=== PATIENT | female | born 1980 | race Caucasian/White ===

== ENCOUNTER 2016-08-29 20:26 | Emergency (ER) | payer MEDICAID ==
[~2016-08-29] VITALS: Ht 157.5 cm; Wt 86.2 kg
--- NOTE | 2016-08-29 20:26 | NUR ---
Patient to ER bed 5 to gown for evaluation. Side rails up. Report given to SANTANA LOPEZ.
--- NOTE | 2016-08-29 20:27 | NUR ---
Pt AOx4, arrived to ER via BLS with complaint of left hip/leg pain. Patient states that pain 10/10 is present during menstrual time. Pt is able to ambulate but is painful. Pt in no acute distress. Will continue to monitor.
--- NOTE | 2016-08-29 20:28 | NUR ---
MD at bedside examining patient
[2016-08-29] MEDS ORDERED: NACL 0.9% 1,000 ML IV ONE (20:29)
[2016-08-29 20:30] VITALS: BP 129/84; PULSE 73; RESP 18; TEMP 98.1; O2SAT 98
[2016-08-29] MEDS ORDERED: KETOROLAC TROMETHAMINE 30 MG VIAL IVP ONE (20:30)
--- NOTE | 2016-08-29 20:30 | NUR ---
Note undone in EDM - 08/30/16 at 0232 by [email or web address] Patient given written and verbal discharge instructions and verbalizes understanding. ER discussed with patient the results and treatment provided. Patient in stable condition. ID arm band removed. IV catheter removed intact and dressing applied, no active bleeding.Rx of Naprosyn given. Patient educated on pain management and to follow up with PMD.Pain Scale 2/10 tolerable to patient.Opportunity for questions provided and answered.
[2016-08-29 20:58] LABS: BASOPHILS # (AUTO) 0.1 K/uL (0.0-0.2); BASOPHILS % (AUTO) 0.6 % (0.0-2.0); EOSINOPHILS # (AUTO) 0.1 K/uL (0.0-0.4); EOSINOPHILS % (AUTO) 0.7 % (0.0-4.0); HEMATOCRIT 39.5 % (36-48); HEMOGLOBIN 13.2 g/dL (12.0-16.0); LYMPHOCYTES # (AUTO) 2.2 K/uL (1.0-5.5); LYMPHOCYTES % (AUTO) 25.8 % (20.5-51.5); MEAN CORPUSCULAR HEMOGLOBIN 31 pg (27-31); MEAN CORPUSCULAR HGB CONC 34 % (32-36); MEAN CORPUSCULAR VOLUME 92 fL (79.0-98.0); MONOCYTES # (AUTO) 0.5 K/uL (0.0-1.0); MONOCYTES % (AUTO) 5.7 % (1.7-9.3); NEUTROPHILS # (AUTO) 5.7 K/uL (1.8-7.7); NEUTROPHILS % (AUTO) 67.2 % (40.0-70.0); PLATELET COUNT (AUTO) 301 K/uL (130-430); RED BLOOD CELL COUNT(AUTO) 4.27 MIL/uL (4.2-6.2); RED CELL DISTRIBUTION WIDTH 11.7 % (9.0-15.0); WHITE BLOOD COUNT (AUTO) 8.6 K/uL (4.8-10.8)
[2016-08-29 21:07] LABS: BILIRUBIN,URINE NEGATIVE (NEGATIVE); BLOOD, URINE 3+ (NEGATIVE); CLARITY/URINE CLEAR (CLEAR); COLOR,URINE YELLOW (YELLOW); GLUCOSE,URINE NEGATIVE (NEGATIVE); KETONES,URINE NEGATIVE (NEGATIVE); LEUKOCYTE ESTERASE ,URINE NEGATIVE (NEGATIVE); NITRITE, URINE NEGATIVE (NEGATIVE); PH,URINE 5.5 (5.0-8.0); PROTEIN URINE NEGATIVE (NEGATIVE); UROBILINOGEN,URINE 0.2 (0.2-1.0)
[2016-08-29 21:14] LABS: ALBUMIN 3.8 g/dL (3.4-4.8); CALCIUM 9.1 mg/dL (8.4-11.0); CREATININE 0.78 mg/dL (0.55-1.30); POTASSIUM 3.5 mmol/L (3.5-5.1); TOTAL BILIRUBIN 0.3 mg/dL (0.0-1.0); TOTAL PROTEIN, SERUM 8.1 g/dL (6.4-8.3)
[2016-08-29 21:35] LABS: BACTERIA,URINE MODERATE /HPF (None Seen); MUCUS,URINE None Seen /LPF (None Seen)
[2016-08-29 22:34] VITALS: BP 128/69; PULSE 84; RESP 18; TEMP 97.8; O2SAT 98
--- NOTE | 2016-08-29 22:34 | NUR ---
Patient given written and verbal discharge instructions and verbalizes understanding. ER MD discussed with patient the results and treatment provided. Patient in stable condition. ID arm band removed. IV catheter removed intact and dressing applied, no active bleeding. Rx of Naprosyn given. Patient educated on pain management and to follow up with PMD. Pain Scale 2/10 tolerable to patient. Opportunity for questions provided and answered.
== END 2016-08-29 22:34 | disposition home or self-care (01) ==
LOC: SED 20:26
DX: R10.2 Pelvic and perineal pain (principal); M19.90 Unspecified osteoarthritis, unspecified site
CPT/HCPCS: 36415; 72170; 80053; 81000; 82150; 83690; 85025; 87086; 96361; 96374; 99285; J1885; J7030

== ENCOUNTER 2018-04-10 20:22 | Emergency (ER) | payer MEDICAID ==
[~2018-04-10] VITALS: Ht 162.6 cm; Wt 83.9 kg
[2018-04-10 20:25] VITALS: BP_SYST 138
[2018-04-10 22:56] VITALS: BP_SYST 135
== END 2018-04-10 22:56 | disposition home or self-care (01) ==
LOC: SED 20:22
DX: R11.10 Vomiting, unspecified (principal); R19.7 Diarrhea, unspecified; J45.909 Unspecified asthma, uncomplicated
CPT/HCPCS: 99283

== ENCOUNTER 2018-12-04 17:54 | Emergency (ER) | payer MEDICAID ==
[~2018-12-04] VITALS: Ht 160 cm; Wt 86.2 kg
[2018-12-04 17:55] VITALS: BP_SYST 126
[2018-12-04] MEDS ORDERED: TRIAMCINOLONE ACETONIDE 40 MG/ML IM ONE (18:15)
[2018-12-04 18:35] VITALS: BP_SYST 126
== END 2018-12-04 18:34 | disposition home or self-care (01) ==
LOC: SED 17:54
DX: J45.909 Unspecified asthma, uncomplicated (principal); R03.0 Elevated blood-pressure reading, without diagnosis of hypertension
CPT/HCPCS: 81025; 96372; 99283; J3301

== ENCOUNTER 2018-12-15 16:23 | Emergency (ER) | payer MEDICAID ==
[~2018-12-15] VITALS: Ht 160 cm; Wt 84.4 kg
[2018-12-15 16:29] VITALS: BP_SYST 137
[2018-12-15] MEDS ORDERED: KETOROLAC TROMETHAMINE 60 MG/2 ML VIAL IM ONE (17:00)
[2018-12-15 17:42] VITALS: BP_SYST 132
== END 2018-12-15 17:42 | disposition home or self-care (01) ==
LOC: SED 16:23
DX: J06.9 Acute upper respiratory infection, unspecified (principal); R03.0 Elevated blood-pressure reading, without diagnosis of hypertension
CPT/HCPCS: 96372; 99283; J1885

== ENCOUNTER 2019-03-12 16:58 | Emergency (ER) | payer MEDICAID ==
[~2019-03-12] VITALS: Ht 160 cm; Wt 86.6 kg
[2019-03-12 17:14] VITALS: BP_SYST 112
--- NOTE | 2019-03-12 17:19 | NUR ---
Patient triaged and placed in waiting room. VSS and patient appears in no acute distress at this time. Accompanied by SELF, awaiting available bed, and MD notified of need for MSE.
--- NOTE | 2019-03-12 17:22 | NUR ---
Pt ambulated into ED c/o 09/25 sore throat, uncontrollable cough, congestion x 2 weeks. Skin pink dry and warm, cough present. No other injuries/complaints per pt/noted. Will continue to monitor.
--- NOTE | 2019-03-12 17:40 | NUR ---
Patient to ER bed 05 for evaluation. Side rails up.
[2019-03-12 17:51] LABS: STREPTOCOCCUS A SCREEN (RAPID) NEGATIVE (NEGATIVE)
--- NOTE | 2019-03-12 18:15 | NUR ---
ER at bedside examining patient.
[2019-03-12 18:25] LABS: BASOPHILS % (AUTO) 0.5 % (0.0-2.0); EOSINOPHILS # (AUTO) 0.1 K/uL (0.0-0.4); EOSINOPHILS % (AUTO) 1.3 % (0.0-4.0); HEMATOCRIT 38.4 % (36-48); HEMOGLOBIN 13.1 g/dL (12.0-16.0); LYMPHOCYTES % (AUTO) 21.8 % (20.5-51.5); MEAN CORPUSCULAR HEMOGLOBIN 33 pg (27-31); MEAN CORPUSCULAR HGB CONC 34 % (32-36); MEAN CORPUSCULAR VOLUME 95 fL (79.0-98.0); MONOCYTES # (AUTO) 0.5 K/uL (0.0-1.0); MONOCYTES % (AUTO) 5.4 % (1.7-9.3); NEUTROPHILS # (AUTO) 6.6 K/uL (1.8-7.7); PLATELET COUNT (AUTO) 301 K/uL (130-430); RED BLOOD CELL COUNT(AUTO) 4.03 MIL/uL (4.2-6.2); RED CELL DISTRIBUTION WIDTH 12.6 % (9.0-15.0); WHITE BLOOD COUNT (AUTO) 9.3 K/uL (4.8-10.8)
[2019-03-12 18:30] LABS: INFLUENZA A&B ANTIGEN SCREEN NEGATIVE FOR A & B (NEGATIVE)
[2019-03-12 18:35] LABS: CALCIUM 8.3 mg/dL (8.4-11.0); CREATININE 0.73 mg/dL (0.55-1.30); POTASSIUM 3.6 mmol/L (3.5-5.1)
[2019-03-12 18:50] LABS: ALBUMIN 3.3 g/dL (3.4-4.8); THYROID STIMULATING HORMONE 2.78 uIu/mL (0.36-3.74); TOTAL BILIRUBIN 0.3 mg/dL (0.0-1.0)
--- NOTE | 2019-03-12 19:12 | NUR ---
Report given to Uzair
--- NOTE | 2019-03-12 20:48 | NUR ---
started 20 G IV on R AC, CT with contrast consent signed and Radiology notified
--- NOTE | 2019-03-12 21:45 | NUR ---
VSS no s/s of acute distress Resting on gurney rails up
[2019-03-12 23:00] VITALS: BP_SYST 112
--- NOTE | 2019-03-12 23:00 | NUR ---
Patient given written and verbal discharge instructions and verbalizes understanding. ER MD discussed with patient the results and treatment provided. Patient in stable condition. ID arm band removed. IV catheter removed intact and dressing applied, no active bleeding. Patient educated on pain management and to follow up with PMD. Pain Scale 0/10 Opportunity for questions provided and answered.
== END 2019-03-12 23:00 | disposition home or self-care (01) ==
LOC: SED 16:58
DX: E04.1 Nontoxic single thyroid nodule (principal)
CPT/HCPCS: 36415; 76536-TC; 80053; 81025; 84439; 84443-TC; 84703; 85025; 86403; 86710; 87081; 99284

== ENCOUNTER 2019-07-10 16:41 | Emergency (ER) | payer MEDICAID ==
[~2019-07-10] VITALS: Ht 160 cm; Wt 88.0 kg
[2019-07-10 16:50] VITALS: BP_SYST 126
[2019-07-10 17:26] LABS: BASOPHILS # (AUTO) 0.1 K/uL (0.0-0.2); BASOPHILS % (AUTO) 0.7 % (0.0-2.0); EOSINOPHILS # (AUTO) 0.1 K/uL (0.0-0.4); EOSINOPHILS % (AUTO) 1.5 % (0.0-4.0); HEMATOCRIT 37.9 % (36-48); LYMPHOCYTES # (AUTO) 2.6 K/uL (1.0-5.5); LYMPHOCYTES % (AUTO) 29.9 % (20.5-51.5); MEAN CORPUSCULAR HEMOGLOBIN 33 pg (27-31); MEAN CORPUSCULAR HGB CONC 34 % (32-36); MEAN CORPUSCULAR VOLUME 95 fL (79.0-98.0); MONOCYTES # (AUTO) 0.5 K/uL (0.0-1.0); NEUTROPHILS # (AUTO) 5.5 K/uL (1.8-7.7); NEUTROPHILS % (AUTO) 61.9 % (40.0-70.0); PLATELET COUNT (AUTO) 309 K/uL (130-430); RED BLOOD CELL COUNT(AUTO) 4.02 MIL/uL (4.2-6.2); RED CELL DISTRIBUTION WIDTH 12.8 % (9.0-15.0); WHITE BLOOD COUNT (AUTO) 8.8 K/uL (4.8-10.8)
[2019-07-10 17:41] LABS: CALCIUM 8.2 mg/dL (8.4-11.0); CREATININE 0.74 mg/dL (0.55-1.30); POTASSIUM 3.4 mmol/L (3.5-5.1)
[2019-07-10 17:44] LABS: PROTHROMBIN TIME 10.2 SECS (9.5-12.5)
[2019-07-10 17:46] LABS: ALBUMIN 3.2 g/dL (3.4-4.8); C-REACTIVE PROTEIN QUANT 0.6 mg/dL (0-0.5); TOTAL BILIRUBIN 0.3 mg/dL (0.0-1.0)
[2019-07-10 18:35] VITALS: BP_SYST 126
== END 2019-07-10 18:32 | disposition home or self-care (01) ==
LOC: SED 16:41
DX: I77.6 Arteritis, unspecified (principal); J45.909 Unspecified asthma, uncomplicated
CPT/HCPCS: 36415; 80053; 85025; 85610-TC; 85730-TC; 86140; 99283

== ENCOUNTER 2021-11-04 09:03 | Inpatient (IN) | payer MEDICAID ==
[~2021-11-04] VITALS: Ht 160 cm; Wt 90.3 kg
[2021-11-04 09:14] VITALS: BP_SYST 122
--- NOTE | 2021-11-04 09:23 | NUR ---
Dr. Hoffman at bedside.
--- NOTE | 2021-11-04 09:25 | NUR ---
PT TRIAGED AND TAKEN TO ROOM 8. ENDORSED TO JOHN VELEZ. PT HAS C/O DIZZINESS X ONE WEEK WITH DIZZINESS, CHEST PRESSURE, ANXIETY, BACK PAIN. DENIES N/V/D/C. ON R/A. VSS. PT PLACED ON ON MONITOR. SIDERAILS UP X2.
--- NOTE | 2021-11-04 09:27 | NUR ---
DR NIEVES AT BEDSIDE ASSESING PT
--- NOTE | 2021-11-04 09:33 | NUR ---
PT DROVE TO ER/PRESENTED WITH COMPLAINT OF CHEST PRESSURE RADIATING TO BACK AND LEFT EAR PAIN 09/25.PT HAS HX OF VERTIGO AND IS ALLERGIC TO MEDICATION SHE WAS GIVEN 2 YR AGO TO TREAT VERTIGO. PT ALSO HAS COMPLAINT OF DIZZYNESS. VS ARE WITHIN NORMAL LIMITS WITH O2 SAT AT 98%. PT IN BED WITH BED LOWERED LOCKED AND LOWERED RAILS UP. WILL CONTINUE TO ASSESS
[2021-11-04 10:11] LABS: BASOPHILS # (AUTO) 0.1 K/uL (0.0-0.2); BASOPHILS % (AUTO) 1.4 % (0.0-2.0); EOSINOPHILS # (AUTO) 0.3 K/uL (0.0-0.4); EOSINOPHILS % (AUTO) 5.8 % (0.0-4.0); HEMATOCRIT 37.1 % (36-48); HEMOGLOBIN 13.3 g/dL (12.0-16.0); LYMPHOCYTES % (AUTO) 19.2 % (20.5-51.5); MEAN CORPUSCULAR HEMOGLOBIN 32 pg (27-31); MEAN CORPUSCULAR HGB CONC 36 % (32-36); MEAN CORPUSCULAR VOLUME 90 fL (79.0-98.0); MONOCYTES # (AUTO) 0.2 K/uL (0.0-1.0); MONOCYTES % (AUTO) 4.2 % (1.7-9.3); NEUTROPHILS # (AUTO) 3.5 K/uL (1.8-7.7); NEUTROPHILS % (AUTO) 69.4 % (40.0-70.0); PLATELET COUNT (AUTO) 275 K/uL (130-430); WHITE BLOOD COUNT (AUTO) 5.1 K/uL (4.8-10.8)
[2021-11-04] MEDS ORDERED: ASPIRIN 325 MG TABLET PO ONE (10:15)
--- NOTE | 2021-11-04 10:19 | NUR ---
ADM ASPIRIN FOR PAIN 09/25
[2021-11-04 10:21] LABS: ANION GAP 6 (5-15); CALCIUM 8.2 mg/dL (8.4-11.0); CHLORIDE 105 mmol/L (98-107); CREATININE 0.74 mg/dL (0.55-1.30); GLUCOSE 96 mg/dL (70-99); UREA NITROGEN, BLOOD 13 mg/dL (8-21)
[2021-11-04 10:31] LABS: GFR AFRICAN AMERICAN 112 mL/min (>90)
[2021-11-04 10:33] LABS: ALANINE AMINOTRANSFERASE 36 U/L (12-78); ALBUMIN 3.3 g/dL (3.4-4.8); ASPARTATE AMINOTRANSFERASE 30 U/L (10-37); TOTAL BILIRUBIN 0.5 mg/dL (0.0-1.0)
[2021-11-04 11:22] LABS: BILIRUBIN,URINE NEGATIVE (NEGATIVE); CLARITY/URINE CLEAR (CLEAR); COLOR,URINE YELLOW (YELLOW); GLUCOSE,URINE NEGATIVE (NEGATIVE); KETONES,URINE NEGATIVE (NEGATIVE); LEUKOCYTE ESTERASE ,URINE NEGATIVE (NEGATIVE); NITRITE, URINE NEGATIVE (NEGATIVE); PH,URINE 6.5 (5.0-8.0); PROTEIN URINE NEGATIVE (NEGATIVE); UROBILINOGEN,URINE 0.2 (0.2-1.0)
[2021-11-04 11:34] LABS: BLOOD, URINE TRACE (NEGATIVE)
[2021-11-04 11:36] LABS: RBC,URINE 0-3 /HPF (0-3); WBC,URINE 0-3 /HPF (0-3)
[2021-11-04 11:37] LABS: BACTERIA,URINE RARE /HPF (None Seen); MUCUS,URINE 1+ /LPF (None Seen)
--- NOTE | 2021-11-04 14:14 | NUR ---
JOSSYID Swabbed, sent to lab.
--- NOTE | 2021-11-04 14:19 | NUR ---
Admit bed requested Patient will be admitted to care of . Admitted to unit. Diagnosis Inpatient (Yes or No) Observation (Yes or No) Orientation concerns or request close to nursing station (Yes or No) Covid Status On vent or bipap Isolation requirements Needs a sitter From Home (Yes or if No enter name of facility) Requires Dialysis (Yes or No) Med Rec Completed (Yes of No)
[2021-11-04] MEDS ORDERED: LEVO75TA7 PO (16:48)
--- NOTE | 2021-11-04 17:15 | NUR ---
ASSUMED CARE OF PT.
--- NOTE | 2021-11-04 19:27 | NUR ---
ENDORSED PT TO [facility] EAST[facility]. ALL QUESTIONS AND CONCERNS ADDRESSED.
[2021-11-04 20:00] VITALS: BP_SYST 109
[2021-11-04 20:05] VITALS: BP_SYST 109
--- NOTE | 2021-11-04 20:15 | NUR ---
ADMIT NOTE Received pt from ER to [facility] unit, bed 109A-Tele with a diagnosis of CHEST PAIN at 2015. Pt received and report given to JOHN Salazar. Admission process initiated. Patient oriented to pain management, safety and call light-teach back done.
--- NOTE | 2021-11-04 20:38 | NUR ---
RECEIVED PT REPORT FROM PRIMARY RN. ALL QUESTIONS ANSWERED. PT WAS PENDING BED AT TIME OF REPORT. PT TAKEN TO TELE BED 109A. ON MONITOR. VSS. PT IN STABLE CONDITION.
[2021-11-05 07:00] VITALS: BP_SYST 98
[2021-11-05 09:06] LABS: THYROID STIMULATING HORMONE 3.71 uIu/mL (0.36-3.74)
[2021-11-05 13:11] VITALS: BP_SYST 98
--- NOTE | 2021-11-05 13:46 | NUR ---
DC PAPER EXPLAINED AND SIGNED BY THE PATIENT. MEDICATION PERSCRIPTION AND DC PAPER GIVEN TO THE PATIENT. ALL BELONGINGS TAKEN BY THE PATIENT.
[2021-11-05] MEDS ORDERED: busPIRone HCL 5 MG TABLET PO SCH (21:00)
== END 2021-11-05 13:50 | disposition home or self-care (01) | DRG 203 ==
LOC: SED 09:03 → STU 14:26
PROVIDERS: ADMIT Internal Medicine; ATTEND Internal Medicine
DX: R07.89 Other chest pain (principal); E44.1 Mild protein-calorie malnutrition; E66.9 Obesity, unspecified; E89.0 Postprocedural hypothyroidism; F41.9 Anxiety disorder, unspecified; J45.909 Unspecified asthma, uncomplicated; Z20.822 Contact with and (suspected) exposure to COVID-19; Z79.899 Other long term (current) drug therapy; Z68.35 Body mass index [BMI] 35.0-35.9, adult; Z88.8 Allergy status to other drugs, medicaments and biological substances
CPT/HCPCS: 36415; 71045; 80053; 81000; 82550; 83880; 84443; 84484; 84703; 85025; 93005; 99285; G0378

== ENCOUNTER 2022-06-17 17:59 | Emergency (ER) | payer MEDICAID ==
[~2022-06-17] VITALS: Ht 160 cm; Wt 89.8 kg
[~2022-06-17 17:59] MED LIST: LEVO75TA7 PO
[2022-06-17 19:00] VITALS: BP_SYST 132
[2022-06-17] MEDS ORDERED: MAG HYDROX/AL HYDROX/SIMETH 30 ML, DICYCLOMINE HCL 20 MG, LIDOCAINE VISCOUS 2% 15ML (PO... PO ONE ×3 (20:00)
[2022-06-17] MEDS ORDERED: KETOROLAC TROMETHAMINE 30 MG VIAL IM ONE (20:00)
[2022-06-17 20:32] LABS: BASOPHILS # (AUTO) 0.1 K/uL (0.0-0.2); BASOPHILS % (AUTO) 0.8 % (0.0-2.0); EOSINOPHILS # (AUTO) 0.2 K/uL (0.0-0.4); HEMATOCRIT 37.6 % (36-48); HEMOGLOBIN 13.1 g/dL (12.0-16.0); LYMPHOCYTES # (AUTO) 2.4 K/uL (1.0-5.5); LYMPHOCYTES % (AUTO) 30.5 % (20.5-51.5); MEAN CORPUSCULAR HEMOGLOBIN 33 pg (27-31); MEAN CORPUSCULAR HGB CONC 35 % (32-36); MEAN CORPUSCULAR VOLUME 93 fL (79.0-98.0); MONOCYTES # (AUTO) 0.6 K/uL (0.0-1.0); MONOCYTES % (AUTO) 7.4 % (1.7-9.3); NEUTROPHILS # (AUTO) 4.5 K/uL (1.8-7.7); NEUTROPHILS % (AUTO) 58.3 % (40.0-70.0); PLATELET COUNT (AUTO) 291 K/uL (130-430); RED BLOOD CELL COUNT(AUTO) 4.03 MIL/uL (4.2-6.2); RED CELL DISTRIBUTION WIDTH 12.7 % (9.0-15.0); WHITE BLOOD COUNT (AUTO) 7.7 K/uL (4.8-10.8)
[2022-06-17 20:49] LABS: ALANINE AMINOTRANSFERASE 32 U/L (12-78); ALBUMIN 3.2 g/dL (3.4-4.8); ANION GAP 5 (5-15); ASPARTATE AMINOTRANSFERASE 20 U/L (10-37); CALCIUM 8.1 mg/dL (8.4-11.0); CHLORIDE 103 mmol/L (98-107); CREATININE 0.84 mg/dL (0.55-1.30); GFR AFRICAN AMERICAN 96 mL/min (>90); GLUCOSE 82 mg/dL (70-99); TOTAL BILIRUBIN 0.2 mg/dL (0.0-1.0); UREA NITROGEN, BLOOD 19 mg/dL (8-21)
[2022-06-17 20:52] LABS: LIPASE 76 U/L (73-393)
[2022-06-17 20:58] LABS: BILIRUBIN,URINE NEGATIVE (NEGATIVE); BLOOD, URINE NEGATIVE (NEGATIVE); CLARITY/URINE CLOUDY (CLEAR); COLOR,URINE YELLOW (YELLOW); GLUCOSE,URINE NEGATIVE (NEGATIVE); KETONES,URINE NEGATIVE (NEGATIVE); LEUKOCYTE ESTERASE ,URINE NEGATIVE (NEGATIVE); NITRITE, URINE NEGATIVE (NEGATIVE); PH,URINE 5.5 (5.0-8.0); PROTEIN URINE NEGATIVE (NEGATIVE); UROBILINOGEN,URINE 0.2 (0.2-1.0)
[2022-06-17 21:06] LABS: BACTERIA,URINE FEW /HPF (None Seen); RBC,URINE NONE SEEN /HPF (0-3); WBC,URINE NONE SEEN /HPF (0-3)
[2022-06-17 21:07] LABS: MUCUS,URINE None Seen /LPF (None Seen); URINE AMORPHOUS URATE 3+ /HPF (None Seen)
--- NOTE | 2022-06-17 22:05 | NUR ---
Patient placed in ER bed 3 for evaluation. Bed in lowest position with siderails up. Instructed to notify ED staff for any changes in condition or worsening of symptoms. Patient verbalized understanding. Addendum: 06/17/22 at 2208 by [id number] Patient placed in ER Hallway 1 for evaluation. Bed in lowest position with siderails up. Report given to Reji LOPEZ for continuity. Instructed to notify ED staff for any changes in condition or worsening of symptoms. Patient verbalized understanding.
[2022-06-17] MEDS ORDERED: ALPRAZolam 0.25 MG TABLET PO ONE (22:30)
[2022-06-17] MEDS ORDERED: ACETAMINOPHEN 500 MG TABLET PO ONE (22:30)
--- NOTE | 2022-06-17 22:30 | NUR ---
DIRST CONTACT WITH PT. ASSESSMENT COMPLETED. AWAITING EVAL AND ORDERS.
[2022-06-17] MEDS ORDERED: KETOROLAC TROMETHAMINE 30 MG VIAL ONE (22:56)
[2022-06-17] MEDS ORDERED: MAG-AL HYDROX/SIMETH 30 ML UDC ONE (22:56)
[2022-06-17] MEDS ORDERED: DICYCLOMINE HCL 10 MG/5 ML SOLUTION ONE (22:58)
[2022-06-17] MEDS ORDERED: LIDOCAINE VISCOUS 2%, 15 ML UDC ONE (22:59)
[2022-06-17 23:00] VITALS: BP_SYST 124
[2022-06-17] MEDS ORDERED: ALPR0.5T PO (23:41)
[2022-06-17] MEDS ORDERED: OMEP-268 PO (23:44)
[2022-06-17] MEDS ORDERED: SUCR1TAB2 PO (23:44)
--- NOTE | 2022-06-18 00:03 | NUR ---
Patient given written and verbal discharge instructions and verbalizes understanding. ER MD STEPHENSON discussed with patient the results and treatment provided. Patient in stable condition. ID arm band removed. Rx of XANAX, OMEPRAZOLE, AND CARAFATE given. Patient educated on pain management and to follow up with PMD. Pain Scale 0. Opportunity for questions provided and answered. Medication side effect fact sheet provided.
== END 2022-06-18 00:03 | disposition home or self-care (01) ==
LOC: SED 17:59
DX: K21.9 Gastro-esophageal reflux disease without esophagitis (principal); R42 Dizziness and giddiness; R10.10 Upper abdominal pain, unspecified; J45.909 Unspecified asthma, uncomplicated; F41.9 Anxiety disorder, unspecified; Z88.8 Allergy status to other drugs, medicaments and biological substances; Z79.899 Other long term (current) drug therapy
CPT/HCPCS: 99285; 71045; 80053; 81000; 83690; 85025; 84484; 36415; 93005; 81025; 96372; J2001; J1885

== ENCOUNTER 2022-10-08 23:56 | Emergency (ER) | payer MEDICAID ==
[~2022-10-08] VITALS: Ht 167.6 cm; Wt 90.7 kg
[~2022-10-08 23:56] MED LIST changes: +ALPR0.5T PO; +OMEP-268 PO; +SUCR1TAB2 PO
[2022-10-09 00:10] VITALS: BP_SYST 130; PULSE 64; RESP 19; TEMP 97.9; O2SAT 98
--- NOTE | 2022-10-09 00:20 | NUR ---
REPORT GIVEN TO ED HOROWITZ
--- NOTE | 2022-10-09 00:21 | NUR ---
SUBSTERNAL CHEST PAIN THAT RADIATES TO BACK 10/26, NITRO AND ASA GIVEN, PATIENT STATES SHE HAS A HISTORY OF MINI STROKE FROM 2021
--- NOTE | 2022-10-09 00:27 | NUR ---
pt bib self. c/o chest pain. pt states pain started yesterday morning. pt states pain got worse and she started to worry when she noted pain started radiating to back. Pt states constant pain. pt states pain 6/10. pt states pressure like pain. Pt took ibuprofen and found no relief of pain. Pt denies N/V/D. Pt states slight dizziness. Pt afebrile. Pt VSS. AAOX4. Pt skin dry and intact. Pt speaking full complete sentences. Pt in bed with side rails up.
--- NOTE | 2022-10-09 00:31 | NUR ---
ER at bedside examining patient.
[2022-10-09] MEDS ORDERED: IBUP-1971 PO (00:44)
[2022-10-09] MEDS ORDERED: KETOROLAC TROMETHAMINE 60 MG/2 ML VIAL IM ONE (00:45)
--- NOTE | 2022-10-09 01:09 | NUR ---
Patient given written and verbal discharge instructions and verbalizes understanding. ER MD discussed with patient the results and treatment provided. Patient in stable condition. ID arm band removed. IV catheter removed intact and dressing applied, no active bleeding. Rx of IBUPROFEN given. Patient educated on pain management and to follow up with PMD. Opportunity for questions provided and answered. Medication side effect fact sheet provided.
[2022-10-09 01:10] VITALS: BP_SYST 133; PULSE 77; RESP 15; TEMP 98.8; O2SAT 97
== END 2022-10-09 01:09 | disposition home or self-care (01) ==
LOC: SED 23:56
DX: R07.89 Other chest pain (principal); R06.02 Shortness of breath; F41.9 Anxiety disorder, unspecified; J45.909 Unspecified asthma, uncomplicated; Z88.8 Allergy status to other drugs, medicaments and biological substances; Z79.899 Other long term (current) drug therapy
CPT/HCPCS: 99283; 93005; 96372; J1885

== ENCOUNTER 2023-09-27 22:38 | Emergency (ER) | payer MEDICAID ==
[~2023-09-27] VITALS: Ht 160 cm; Wt 95.3 kg
[~2023-09-27 22:38] MED LIST changes: +AMOX500C2 PO; +CETI5TAB6 PO; +FLUT16SP16 NS; +IBUP-1971 PO; +PROP1DRO6 OP; +PSEU30TA36 PO
[2023-09-27 23:24] VITALS: BP_SYST 128; PULSE 75; RESP 19; TEMP 98; O2SAT 96
[2023-09-27] MEDS: NACL 0.9% 1,000 ML IV ONE (23:57)
[2023-09-28 00:09] LABS: BASOPHILS # (AUTO) 0.1 K/uL (0.0-0.2); BASOPHILS % (AUTO) 0.7 % (0.0-2.0); EOSINOPHILS # (AUTO) 0.3 K/uL (0.0-0.4); EOSINOPHILS % (AUTO) 3.6 % (0.0-4.0); HEMATOCRIT 37.3 % (36-48); LYMPHOCYTES # (AUTO) 2.5 K/uL (1.0-5.5); LYMPHOCYTES % (AUTO) 30.3 % (20.5-51.5); MEAN CORPUSCULAR HEMOGLOBIN 32 pg (27-31); MEAN CORPUSCULAR HGB CONC 35 % (32-36); MEAN CORPUSCULAR VOLUME 92 fL (79.0-98.0); MONOCYTES # (AUTO) 0.6 K/uL (0.0-1.0); NEUTROPHILS # (AUTO) 4.8 K/uL (1.8-7.7); NEUTROPHILS % (AUTO) 58.4 % (40.0-70.0); PLATELET COUNT (AUTO) 291 K/uL (130-430); RED BLOOD CELL COUNT(AUTO) 4.07 MIL/uL (4.2-6.2); RED CELL DISTRIBUTION WIDTH 13.1 % (9.0-15.0); WHITE BLOOD COUNT (AUTO) 8.3 K/uL (4.8-10.8)
[2023-09-28 00:30] LABS: CALCIUM 8.6 mg/dL (8.4-11.0); CREATININE 0.73 mg/dL (0.55-1.30); POTASSIUM 3.8 mmol/L (3.5-5.1)
[2023-09-28 01:20] LABS: BILIRUBIN,URINE NEGATIVE (NEGATIVE); BLOOD, URINE NEGATIVE (NEGATIVE); CLARITY/URINE CLEAR (CLEAR); COLOR,URINE YELLOW (YELLOW); GLUCOSE,URINE NEGATIVE (NEGATIVE); KETONES,URINE NEGATIVE (NEGATIVE); LEUKOCYTE ESTERASE ,URINE NEGATIVE (NEGATIVE); NITRITE, URINE NEGATIVE (NEGATIVE); PROTEIN URINE NEGATIVE (NEGATIVE); UROBILINOGEN,URINE 0.2 (0.2-1.0)
[2023-09-28 01:56] VITALS: BP_SYST 128; PULSE 75; RESP 19; TEMP 98; O2SAT 96
== END 2023-09-28 01:56 | disposition home or self-care (01) ==
LOC: SED 22:38
DX: H81.10 Benign paroxysmal vertigo, unspecified ear (principal); R10.11 Right upper quadrant pain; Z88.0 Allergy status to penicillin; Z88.8 Allergy status to other drugs, medicaments and biological substances; Z79.899 Other long term (current) drug therapy; Z79.2 Long term (current) use of antibiotics
CPT/HCPCS: 99283; 96360; 80048; 81001; 85025; 36415; 81003; J7030